=== PATIENT | female | born 1980 | race Caucasian/White ===

== ENCOUNTER → 2020-04-26 14:14 | Outpatient (CLI) | payer OTHER, SELFPAY ==
--- NOTE | 2020-04-26 | DI.MG.S_ITS ---
BILATERAL DIGITAL DIAGNOSTIC MAMMOGRAM 3D/2D: 04/26/2020 CLINICAL: Right breast pain. Comparison is made to exam dated: 04/13/2020 ultrasound - [facility]. The tissue of both breasts is extremely dense, which lowers the sensitivity of mammography. There is a 1.8 cm x 2.2 cm x 1.8 cm equal density asymmetry with a circumscribed margin and diffuse calcifications in the left breast at 12 o'clock posterior depth. There are also diffuse calcifications in the right breast. No other significant masses, calcifications, or other findings are seen in either breast. IMPRESSION: INCOMPLETE: NEEDS ADDITIONAL IMAGING EVALUATION The 1.8 cm x 2.2 cm x 1.8 cm equal density asymmetry in the left breast most likely is a cyst and is indeterminate. An ultrasound of the left breast is recommended. The patient had an ultrasound at a [facility] in [place] which showed a 4 millimeter cyst in the 10:30 position 7.5 centimeters from the nipple. No other abnormality was identified. The right breast ultrasound will not need to be repeated. In the left breast the above described asymmetry is likely a cyst, recommend ultrasound of the left breast to confirm. This exam was interpreted at Station ID: [id number]. NOTE: For mammograms, a report in lay terms will be sent to the patient. Approximately 15% of breast malignancies will not be visualized mammographically. In the management of a palpable breast mass, a negative mammogram must not discourage biopsy of a clinically suspicious lesion. Electronically Signed By: Jonathan Astudillo acr/:04/26/2020 15:26:48 letter sent: Additional Imaging Needed ACR BI-RADS Category 0: Incomplete [id number]
== END ==
PROVIDERS: PCP Nurse Practitioner Family; Referring Provider Nurse Practitioner Family; Visit Provider Nurse Practitioner Family
DX: R92.8 Other abnormal and inconclusive findings on diagnostic imaging of breast (principal); N64.4 Mastodynia; N64.89 Other specified disorders of breast
CPT/HCPCS: 77066; G0279

== ENCOUNTER 2023-03-23 19:39 | Emergency (ER) | payer OTHER, SELFPAY ==
[2023-03-23 19:44] VITALS: BP 140/79; PULSE 78; RESP 16; TEMP 36.9; O2SAT 99; BMI 26.5
--- NOTE | 2023-03-23 19:51 | DI.US.S_ITS ---
PROCEDURE: US PERIPH VENOUS LOW EXTREM RT INDICATIONS: POSTERIOR KNEE PAIN; HX DVT TECHNIQUE: Real-time imaging, as well as color and pulse Doppler interrogation, were performed of the lower extremity deep veins from the inguinal ligament to the popliteal fossa, with documentation of the visualized calf veins. COMPARISON: None. FINDINGS: Filling defect within the popliteal vein and anterior tibial vein. These are noncompressible. Remaining the vessels are patent. IMPRESSION: Deep venous thrombosis of the popliteal vein and anterior tibial vein. Dictated by: Chris Garcia M.D. on 03/23/2023 at 21:09 Approved by: Chris Garcia M.D. on 03/23/2023 at 21:11
--- NOTE | 2023-03-23 22:41 | ED_ITS ---
HPI - Extremity Problem General Chief complaint: Extremity Problem,Nontraumatic Stated complaint: Possible blood clot rt leg Time Seen by Provider: 03/23/23 22:41 Source: patient Mode of arrival: Ambulatory History of Present Illness HPI Narrative: 42-year-old woman with a history of varicose veins of the right leg and prior vein stripping with a small blood clot appreciated in postop recheck that was asymptomatic and was treated with a week of low-molecular weight heparin. This week she noticed some pain similar area right popliteal fossa, she initially noticed it prior to getting on a plane from [place] to [place] and returning 48 hours later again noticed that the pain was slightly worse. There is some warmth to the area and increasing swelling to the right calf. She is having some tenderness with walking in the deep portion of her calf. She talked to the nurse referral line who recommended that she come into the emergency department for further evaluation with ultrasound. She describes no fevers, cough, tachycardia, palpitations, dyspnea, orthopnea. Related Data Previous Rx's Medication Instructions Recorded apixaban 5 mg (74 tabs) tablets in 5 mg PO BID #74 ea 03/23/23 a dose pack apixaban 5 mg (74 tabs) tablets in 5 mg PO BID #74 ea 03/23/23 a dose pack apixaban 5 mg tablet 5 mg PO BID #120 tabs 03/23/23 apixaban 5 mg tablet 5 mg PO BID #120 tabs 03/23/23 Allergies Allergy/AdvReac Type Severity Reaction Status Date / Time No Known Drug Allergies Allergy Verified 03/23/23 19:48 Review of Systems Review of Systems Narrative: Pertinent positive and negative findings as per HPI Patient History Social History Smoking Status: Never smoker Smoking Status: Never smoker Substance Use Type: does not use Exam Initial Vital Signs Initial Vital Signs: Vital Signs Temperature 98.5 F 03/23/23 19:44 Pulse Rate 78 03/23/23 19:44 Respiratory Rate 16 03/23/23 19:44 Blood Pressure 140/79 03/23/23 19:44 Pulse Oximetry 99 03/23/23 19:44 Oxygen Delivery Method Room Air 03/23/23 19:44 General: Healthy appearing, in no acute distress. Able to give a complete and coherent history. Well-nourished well-developed HEENT: Moist mucous membranes, normal sclera with reactive pupils, Respiratory: Lungs are clear to auscultation, no wheezing no rales no rhonchi. Full and symmetrical air movement Cardiac: Regular rate and rhythm no murmurs no bruits Abdomen: Soft, nontender, good bowel tones, no flank pain Skin: Warm and dry, no rashes Neurologic: Grossly neurologically intact with no obvious asymmetries or abnormalities Extremities: No trauma, well perfused. There is some tenderness in the right calf proximal gastroc and popliteal fossa. Right calf is slightly more swollen than the left calf. There is no erythema or evidence of cellulitis or abscess. Psych: Cooperative, appropriate insight and affect Course Orders Ordered: ED Orders 03/23/23 19:51 periph venous low extrem rt Stat Discontinued Medications Apixaban (Apixaban 5 Mg Tablet) 5 mg PO NOW ONE Stop: 03/23/23 22:54 Last Admin: 03/23/23 22:58 Dose: 5 mg Documented By: EMMA Vital Signs Vital signs: Vital Signs - 8 hr 03/23/23 19:44 03/23/23 23:12 Temperature 98.5 F Pulse Rate 78 76 Respiratory Rate 16 18 Blood Pressure 140/79 136/80 Pulse Oximetry 99 100 Oxygen Delivery Method Room Air Room Air MDM - Extremity (Nontraumatic) MDM Narrative Medical decision making narrative: CC: Right calf pain Data collected from: patient, partner Differential considered: DVT, gastroc tear, Trevino's cyst rupture Exam documented above, pertinent findings include: Right lower extremity tenderness in the proximal gastroc, normal range of motion of the knee. Neurovascularly intact distally. Slight swelling to the right calf comparison to the left side. Pulmonary and cardiac exams are benign Imaging studies independently reviewed: Ultrasound shows DVT of the popliteal vein and anterior tibial vein Treatments: Patient is started on apixaban. Pres[place] [facility] but if they are unable to fill them she is also given written prescriptions to take to pharmacy of choice in [place] Discussion: 42-year-old woman now with a 2nd DVT in the same area. I am not sure if we can identify this as a provoked versus a non provoked event. With the 1st time it was falling vein surgery. This time it is in the same location associated with long drive down to the airport and flying however the flight itself was less than an hour. She notes that she is active and in fact ran 7 miles this morning with minimal difficulty. At this time I believe that 3 months of oral apixaban is going to be appropriate. Have referred her back to her primary care doctor. Consideration for outpatient workup regarding hyperco agulable state needs to be discussed. Findings of worsening clots as well as consequences of pulmonary emboli are reviewed in detail. Questions are answered and patient is safe for discharge Discharge Plan Departure Patient Disposition: Home Clinical Impression: Deep vein thrombosis of lower extremity Instructions: DI for Deep Vein Thrombosis Activity Restrictions/Additional Instructions: Thank you for coming in today You do have a blood clot right were your tender behind her knee on the right leg. As this is the 2nd blood clot probably need a more thorough outpatient workup regarding your risk for blood clots. With the 1st blood clot related to a vein stripping procedure that make sense. With the 2nd blood clot that may be related to a less than 1 hour flight to [place], I think additional questions should be asked. Your primary care doctor can help with that additional workup. In the meantime, you do need 3 months of apixaban which is a blood thinner medication. This will help so that the blood clot does not get bigger and your body will either reabsorbed with a clot or work its way around it. It is okay to continue your running. You may find that heat to the area is helpful if it is tender. You may also find that compression socks are helpful for swelling and for pain control. I [place] for apix[place] that comes in a premarked packet so that you can take 10 mg twice a day for the 1st week and then down to 5 mg daily. There is a 2nd prescription for 5 mg twice a day for the 2nd and 3rd months. I have also given you written prescriptions for the same thing if you have any [place] If you find that you are getting worse or develop any new symptoms, please feel free to return to the emergency department for further evaluation. Prescriptions: New apixaban 5 mg (74 tabs) tablets,dose pack 5 mg PO BID Qty: 74 0RF apixaban 5 mg (74 tabs) tablets,dose pack 5 mg PO BID Qty: 74 0RF apixaban 5 mg tablet 5 mg PO BID Qty: 120 0RF apixaban 5 mg tablet 5 mg PO BID Qty: 120 0RF Referrals: Sarahi Anderson ARNP [Primary Care Provider] - Stand Alone Forms: Patient Portal/API
[2023-03-23] MEDS: APIXABAN 5 MG TABLET PO (22:58)
[2023-03-23 23:12] VITALS: BP 136/80; PULSE 76; RESP 18; O2SAT 100
== END 2023-03-23 23:12 | disposition home or self-care (01) ==
PROVIDERS: Emergency Provider Emergency Medicine; PCP Nurse Practitioner Family
DX: I82.401 Acute embolism and thrombosis of unspecified deep veins of right lower extremity (principal); Z79.01 Long term (current) use of anticoagulants
CPT/HCPCS: 93971; 99283

== ENCOUNTER → 2023-09-04 15:26 | Outpatient (CLI) | payer OTHER, SELFPAY ==
--- NOTE | 2023-09-04 | DI.MRI.S_ITS ---
PROCEDURE: MR ANKLE RT WO CON INDICATIONS: Plantar fascial fibromatosis/difficulty walking TECHNIQUE: Noncontrast sagittal T1 spin echo and T2 fast spin echo with fat saturation, axial proton density fast spin echo and T2 fast spin echo with fat saturation, coronal T1 spin echo and T2 fast spin echo with fat saturation through the ankle/hindfoot. COMPARISON: None. FINDINGS: Image quality: Excellent Tendons: The flexors, peroneals, and the extensor tendons are unremarkable. No tendinosis of the distal Achilles tendon. Small ossification within the distal Achilles tendon, representing prior injury. No high-grade tear of the distal Achilles tendon. Small posterior calcaneal enthesophyte. Subcutaneous edema posterior to the distal Achilles tendon. Ligaments: The anterior tibiofibular, and the posterior tibial fibular ligaments are intact. The anterior and posterior talofibular ligaments are intact. The calcaneal fibular ligament is intact. Prior sprain of the deep portion of the deltoid ligament. Sinus tarsi: No fibrosis Plantar fascia: Thickening of the central cord of the plantar fascia with intermediate signal and adjacent soft tissue edema, representing plantar fasciitis. Small plantar calcaneal enthesophyte. Muscles: Unremarkable Bones: Mild cystic changes of the distal fibula at the insertion of the posterior talofibular ligament, reactive. No osteochondral lesion of the talar dome. No acute fracture. There is mild marrow edema the calcaneal tuberosity, about the insertion of the distal Achilles tendon, favoring reactive. No significant tibiotalar or posterior subtalar effusion. Small amount of fluid within the Gruberi bursa. IMPRESSION: 1. Prior injury of the distal Achilles tendon with mild reactive marrow edema of the calcaneal tuberosity and associated subcutaneous edema. No high-grade tear of the distal Achilles tendon. 2. Findings suggestive of plantar fasciitis. Small plantar calcaneal enthesophyte. Dictated by: Gaye Dixon M.D. on 09/04/2023 at 19:03 Approved by: Gaye Dixon M.D. on 09/04/2023 at 19:13
== END ==
PROVIDERS: PCP Family Medicine; Referring Provider Podiatrist; Visit Provider Podiatrist
DX: M72.2 Plantar fascial fibromatosis (principal); M77.31 Calcaneal spur, right foot; R26.2 Difficulty in walking, not elsewhere classified; M79.672 Pain in left foot
CPT/HCPCS: 73721